=== PATIENT | female | born 1970 | race Caucasian/White ===

== ENCOUNTER 2021-01-16 17:58 | Emergency (ER) | payer BC, SELFPAY ==
--- NOTE | ~2021-01-16 | XR_ITS ---
EXAMINATION: XR lumbar spine 2-3V DATE: 01/16/2021 18:53 INDICATION: Low back pain. TECHNIQUE: 3 views of lumbar spine were obtained. COMPARISON: None. FINDINGS: Bone alignment is normal. Vertebral body heights and intervertebral disc heights are normal . There are endplate osteophytes at most levels. There is multilevel mild facet joint osteoarthritis. IMPRESSION: 1. Mild lumbar spondylosis. Reviewed, dictated and finalized at location A. WEAR SALES COORDINATOR IMPRESSION: 1. Mild lumbar spondylosis.
--- NOTE | ~2021-01-16 | XR_ITS ---
EXAMINATION: XR chest 2V DATE: 01/16/2021 18:51 INDICATION: Shortness of breath. Back pain. TECHNIQUE: Frontal and lateral views of the chest were obtained. COMPARISON: Chest 2 views 10/27/2018 FINDINGS: The chest demonstrates clear lungs without pneumonia, pleural effusion, or pneumothorax. Th e heart size is normal. There is a surgical clip in right breast. IMPRESSION: 1. No acute cardiopulmonary disease. Reviewed, dictated and finalized at location A. TELEPHONIC
[2021-01-16 18:15] VITALS: BP 160/90; PULSE 68; RESP 20; TEMP 36.7; O2SAT 100
--- NOTE | 2021-01-16 18:17 | ED.BACK ---
HPI - Back Pain/Injury General Chief Complaint: Back Pain/Injury Stated Complaint: Chills/Aches/Low Back Pain Source: patient Mode of arrival: ambulatory Limitations: no limitations History of Present Illness HPI Narrative: Neetu Islas is a 50 yo female with aPMH of HTN, renal stones, depression, who comes to [facility] with c/o 10/10 back pain that started 5 hours ago. Denies trauma. States pain is all over, hurts with deep inspiration, mid to lower back. .Denies lifting, any known injury Related Data Home Medications Medication Instructions Recorded Confirmed hydrochlorothiazide 12.5 mg PO BID 01/16/21 01/16/21 Allergies Allergy/AdvReac Type Severity Reaction Status Date / Time No Known Allergies Allergy Verified 01/16/21 18:38 Review of Systems Review of Systems: Narrative: CONSTITUTIONAL: Denies fever, chills, sweats. EYES: Denies visual changes, redness, discharge. ENT: Denies rhinorrhea, congestion, sore throat, otalgia. CARDIOVASCULAR: Denies chest pain, palpitations, edema. RESPIRATORY: Denies dyspnea, wheezing, cough GASTROINTESTINAL: Denies abdominal pain, nausea, vomiting, diarrhea. GENITOURINARY: Denies dysuria, hematuria, abnormal discharge SKIN: Denies rash or itching. NEUROLOGIC: Denies numbness, or focal weakness. PSYCHIATRIC: Denies anxiety or depression. Pain is described as being 10 out of 10 and diffuse across lower back PMFSH Past Medical History Medical History Depression HTN (hypertension) Renal calculi Family History Family History (Updated 01/16/21 @ 18:41 by Angélica Bass CNP) Other Hypertension Social History Social History (Updated 01/16/21 @ 18:41 by Angélica Bass CNP) Smoking status: Former smoker Comments At time of signature, I agree with nursing past medical, surgical, social and family history. There is no relevant family history pertinent to the presenting complaint. Exam Narrative: Exam Narrative: GENERAL: This is a well-nourished, well-developed patient, in moderate distress. HEAD: normocephalic, atraumatic. EYES: . Sclera clear/white. Vision is grossly intact. EARS: External ears normal. Hearing grossly intact. NOSE: External nose normal without nasal discharge, nares without redness, no rhinorrhea. THROAT: Not performed NECK: Neck supple, non-tender CARDIOVASCULAR: Regular rate and rhythm without murmurs, gallops, or rubs. RESPIRATORY: Clear to auscultation. Breath sounds equal bilaterally. No wheezes, rales, or rhonchi. GASTROINTESTINAL: Abdomen soft, non-tender, SKIN: warm, intact with no suspicious lesions or rash, good texture and turgor. NEURO: awake, alert, and oriented to person, place and time. There were no obvious focal neurologic abnormalities. Steady gait EXTREMITIES: Normal range of motion. Can bend forward, lift arms, equal strength- pain when pressure place on arms; pain with bending to right. BACK: tender on R side without deformity Course Course Emergency Course: Patient comes to [facility] with 5 hours of 10/10 back pain that hurts all over particularly on inspiration. UA is negative-no nitrites no leukocyte esterase no blood X-ray lumbar-mild multilevel joint osteoarthritis mild lumbar spondylosis vertebral heights intervertebral disc heights normal X-ray chest-no acute cardiopulmonary disease there is no pneumonia pleural effusion or pneumothorax heart is normal size Toradol given for pain Based on the x-rays and negative UA, patient started on prednisone and muscle relaxant but cautioned the back pain could be indicative of other conditions and that if it worsens she should go to the ER Vital Signs Vital signs: Vital Signs Temperature 98.1 F 01/16/21 18:15 Pulse Rate 68 01/16/21 18:15 Respiratory Rate 20 01/16/21 18:15 Blood Pressure 160/90 H 01/16/21 18:15 Pulse Oximetry 100 01/16/21 18:15 Temperature 98.1 F 01/16/21 18:15 Pulse Rate 68
[2021-01-16] MEDS: KETOROLAC (*BKC) 60 MG/2 ML VIAL IM (18:51)
--- NOTE | 2021-01-16 19:59 | PC.NURSE ---
1910 informed pt [facility] pharmacy is closed and prescriptions could be called into 24 hr pharmacy in [place]. 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
== END 2021-01-16 19:10 | disposition home or self-care (01) ==
PROVIDERS: Emergency Provider Nurse Practitioner; PCP Internal Medicine
DX: R07.89 Other chest pain (principal); Z87.891 Personal history of nicotine dependence; I10 Essential (primary) hypertension; Z87.442 Personal history of urinary calculi
CPT/HCPCS: 71046; 72100; 81003; 96372; 99214; G0463; J1885

== ENCOUNTER 2021-05-08 08:18 | Emergency (ER) | payer BC, SELFPAY ==
[2021-05-08 08:25] VITALS: BP 135/74; PULSE 66; RESP 20; TEMP 37.1; O2SAT 97
--- NOTE | 2021-05-08 09:12 | ED.URI ---
HPI - URI/Sore Throat General Chief Complaint: Upper Respiratory Infection Stated Complaint: Sore Throat, chills, headache Time Seen by Provider: 05/08/21 09:03 Source: patient and RN notes reviewed Mode of arrival: ambulatory Limitations: no limitations History of Present Illness HPI Narrative: 50-year-old female presents with concern for 3-day history of sore throat, fever, chills, headache. She reports she has been taking [id number] remedies such as Tylenol, DayQuil, NyQuil with occasional mild relief. She denies nasal congestion, rhinorrhea, nausea, vomiting, diarrhea, loss of sense of taste or smell, cough, shortness of breath. Reports she was vaccinated for Covid in January elicited complaint: fever and sore throat Related Data Allergies Allergy/AdvReac Type Severity Reaction Status Date / Time No Known Allergies Allergy Verified 05/08/21 08:47 Review of Systems Review of Systems: Narrative: CONSTITUTIONAL: Denies malaise,sweats. Reports chills and fever. EYES: Denies visual changes, redness, or discharge. ENT: Denies rhinorrhea, congestion, sinus pain, otalgia. Reports sore throat. CARDIOVASCULAR: Denies chest pain, palpitations, or edema. RESPIRATORY: Reports cough. Denies dyspnea. GASTROINTESTINAL: Denies abdominal pain, nausea, vomiting, diarrhea SKIN: Denies rash or itching. MUSCULOSKELETAL: Denies myalgia. NEUROLOGIC: Reports headache. All systems reviewed & are unremarkable except as noted in HPI and below PMFSH Past Medical History Medical History Depression HTN (hypertension) Renal calculi Family History Family History (Updated 01/16/21 @ 18:41 by Angélica Bass CNP) Other Hypertension Social History Social History (Updated 01/16/21 @ 18:41 by Angélica Bass CNP) Smoking status: Former smoker Comments At time of signature, agree with nursing past medical, surgical, social and family history. There is no relevant family history pertinent to the presenting complaint Exam Narrative: Exam Narrative: GENERAL: Nontoxic appearing, well-nourished, and in no acute distress. HEAD: Normocephalic EYES: PERRLA, conjunctivae clear ENT: Nares clear, turbinates pink, no discharge. Mucous membranes moist. TM pearly caldera with sharp light reflex bilaterally; no tragal tenderness. Oropharynx erythematous without lesions. Tonsils enlarged and without exudate, no drooling, no hoarseness, no trismus, uvula midline. NECK: Supple. No lymphadenopathy CHEST: Clear to auscultation, breath sounds equal. No wheezing, rhonchi, rales, or stridor. No respiratory distress, speaks in full sentences. HEART: Regular rate and rhythm. No murmur heard. SKIN: Warm, dry, no rash. NEURO: Alert and oriented x3. PSYCH: Normal mood and affect Course Course Emergency Course: Patient is aware of diagnosis, understands and agrees to treatment plan. Anticipatory guidance given. Patient agrees to follow-up as directed and is aware of reasons to seek care at the emergency department. Portions of this record may have been created with voice recognition software Vital Signs Vital signs: Vital Signs Temperature 98.8 F 05/08/21 08:25 Pulse Rate 66 05/08/21 08:25 Respiratory Rate 20 05/08/21 08:25 Blood Pressure 135/74 05/08/21 08:25 Pulse Oximetry 97 05/08/21 08:25 Temperature 98.8 F 05/08/21 08:25 Pulse Rate 66 05/08/21 08:25 Respiratory Rate 20 05/08/21 08:25 Blood Pressure 135/74 05/08/21 08:25 Pulse Oximetry 97 05/08/21 08:25 Reviewed. MDM - URI/Sore Throat MDM Narrative Medical decision making narrative: Differential diagnosis considered: Manuel virus, strep pharyngitis, allergic rhinitis, upper respiratory tract infection, sinusitis, rhinosinusitis, nasopharyngitis. viral pharyngitis, otitis media, otitis externa, pneumonia, bronchitis, viral cough syndrome, viral syndrome, and influenza. Exam findings show no acute concerns o
== END 2021-05-08 09:37 | disposition home or self-care (01) ==
PROVIDERS: Emergency Provider Nurse Practitioner; PCP Internal Medicine
DX: J03.90 Acute tonsillitis, unspecified (principal); Z20.822 Contact with and (suspected) exposure to COVID-19; I10 Essential (primary) hypertension
CPT/HCPCS: 87081; 87426; 87880; 99213; C9803; G0463

== ENCOUNTER 2021-12-24 11:23 | Emergency (ER) | payer BC, SELFPAY ==
--- NOTE | ~2021-12-24 | XR_ITS ---
XR wrist RT min 3V 12/24/2021 11:41 INDICATION: Right wrist pain after fall PROCEDURE: 4 views right wrist COMPARISON: No prior studies for comparison. FINDINGS: Fracture, dislocation or subluxation is not identified. The soft tissues appear within norm al limits. No foreign bodies are identified. IMPRESSION: 1: NO ACUTE BONE OR JOINT ABNORMALITY IDENTIFIED. Reviewed, dictated and finalized at location A. EXTRUSION OPERATOR
[2021-12-24 11:37] VITALS: BP 175/96; PULSE 73; RESP 16; TEMP 37.2; O2SAT 99
--- NOTE | 2021-12-24 12:29 | ED.GENADULT ---
HPI - General Adult General Chief complaint: Extremity Injury, Upper Stated complaint: right wrist injury Source: patient Mode of arrival: ambulatory Limitations: no limitations History of Present Illness HPI narrative: Patient presents for evaluation of right wrist pain following a fall just prior to arrival. She indicates she slipped on ice at home and landed with her right arm outstretched. She did not hit her head. No loss of consciousness. She injured her right wrist and hit her right knee against the ground. She denies any significant pain in right knee. She states her right wrist pain is 5/10 in severity. No radicular component. No paresthesias. She is right hand dominant. Pain is worse with movement. She took tylenol for her pain with some improvement thereafter. She had carpal tunnel surgery on right wrist on 11/15/21 and was advised she should seek medical attention in the event that she injured that area in the future. No additional complaints or concerns. Related Data Home Medications Medication Instructions Recorded Confirmed metoprolol tartrate 50 mg PO BID 12/24/21 12/24/21 rosuvastatin 40 mg PO DAILY 12/24/21 12/24/21 Allergies Allergy/AdvReac Type Severity Reaction Status Date / Time No Known Allergies Allergy Verified 05/08/21 08:47 Review of Systems Review of Systems: CONSTITUTIONAL: Denies fever, chills, or sweats. EYES: Denies visual changes, redness, or discharge. ENT: Denies rhinorrhea, congestion, sore throat, or otalgia. CARDIOVASCULAR: Denies chest pain, palpitations, or edema. RESPIRATORY: Denies cough or dyspnea. GASTROINTESTINAL: Denies abdominal pain, nausea, vomiting, or diarrhea. GENITOURINARY: Denies dysuria or hematuria. SKIN: Denies rash or itching. MUSCULOSKELETAL: Reports right wrist pain and right knee pain. Denies back pain NEUROLOGIC: Denies headache, numbness, dizziness, or weakness. PSYCHIATRIC: Denies anxiety or depression. [facility] Past Medical History Medical History (Updated 12/24/21 @ 12:39 by Taras Flowers, SERVANDO, TERERNCE) Carpal tunnel syndrome Depression HTN (hypertension) Renal calculi Surgical History Surgical History H/O tubal ligation History of delivery History of hysterectomy Family History Family History Mother Family history non-contributory Other Hypertension Social History Social History Smoking status: Former smoker Substance use: never Living arrangements: with family Gender identity (if verbalized by the patient): Female Sexual Orientation (if Verbalized by the Patient): Straight or Heterosexual Spiritual care concerns: No Exam Narrative: GENERAL: Well-appearing, well-nourished, and in no acute distress. HEAD: Normocephalic, atraumatic. EYES: PERRLA and EOMI. ENT: Nares clear, no rhinorrhea or epistaxis. Mucous membranes moist. Oropharynx without tonsillar hypertrophy exudate or other lesions. Bilateral TMs pearly caldera nonbulging NECK: Supple. No adenopathy or masses. No carotid bruits or JVD CHEST: Clear to auscultation. No respiratory distress. No wheezes rales or rhonchi HEART: Regular rate and rhythm. No murmur heard. Normal peripheral pulses. ABDOMEN: Soft, nontender, nondistended, normal active bowel sounds. EXTREMITIES: Normal range of motion. 4/5 hand administrative library assistant strength right and 5/5 hand administrative library assistant strength on left. There is tenderness noted to right wrist without significant edema, crepitus or deformity. SKIN: Excoriated skin tissue surrounding incision from carpal tunnel repair right wrist NEURO: No focal deficits. Alert and oriented x3. PSYCH: Normal mood and affect. Course Course Emergency Course: This is a 51-year-old female who presented after falling on ice just prior to arrival with chief complaint of right wrist pain st
== END 2021-12-24 12:45 | disposition home or self-care (01) ==
PROVIDERS: Emergency Provider Nurse Practitioner
DX: S63.501A Unspecified sprain of right wrist, initial encounter (principal); W00.0XXA Fall on same level due to ice and snow, initial encounter; I10 Essential (primary) hypertension; Z87.891 Personal history of nicotine dependence
CPT/HCPCS: 73110; 99213; G0463

== ENCOUNTER 2025-01-11 08:05 | Emergency (ER) | payer BC, SELFPAY ==
--- OUTSIDE RECORDS SUMMARY | 2025-01-11 08:08 | XMS_ITS | Clinical Summary ---
Author Organization [facility] Address [address] [place] [address] Phone Care Team Providers Care Forest Firefighter Name Role Phone Emi Myers Primary Care Pro vider Allergies Active Allergy Reactions Criticality Noted Date Comments Lisinopril Hives 04/13/2024 Medications amLODIPine (NORVASC) 10 MG Tablet Take 1 Tablet by mouth daily. 30 Tablet 3 04/13/20 24 Active methylPREDNISo lone (MEDROL DOSPACK) 4 MG Tablet Therapy Pack Follow instructions on pack, take with food; Give one pack 1 Tablet 04/14/20 Active Additional Information Patient not taking.Reported on 05/12/2024 hydrALAZINE 10 MG Tablet Take 1 Tablet by mouth 3 times daily as needed for Other (uncontrolled hypertension). 60 Tablet 04/15/20 24 Active metoprolol tartrate (LOPRESSOR) 25 MG Tablet Take 1 tablet by mouth twice daily 60 Tablet 12/19/19 25 Active metoprolol tartrate (LOPRESSOR) 25 MG Tablet Take 1 tablet by mouth twice daily 60 Tablet 11/20/19 25 025 Discontinued Active Problems Problem Noted Date Diagnosed Date Primary hypertension 04/09/2024 Encounters Date Type Department Care Team Description 12/19/2024 Refill [facility] - Internal Medicine - [place] [address] [place] [id number] Emi Myers, PAC Medication Refill 11/20/2024 Refill [facility] [address] [place] [address] Emi Myers, PAC Medication Refill 10/21/2024 Refill [facility] Internal Medicine [facility] [address] [place] [address] Emi Myers, PAC Medication Refill from Last 3 Months Family History Medical History Relation Name Comments Alzheimer's Disease Father Alzheimer's Disease Mother Breast Cancer Mother Cancer Mother Congestive Heart Failure Mother Dementia Mother Relation Name Status Comments Father Mother Alive Social History Tobacco Use Types Packs/Day Years Used Date Smoking Tobacco: Never Smokeless Tobacco: Never Tobacco Cessation:Counseling Given: No Alcohol Use Standard Drinks/Week Comments Not Currently 0 (1 standard drink = 0.6 oz pur e alcohol) [facility] Utilities Answer Date Recorded In the past 12 months has [employer], gas, oil, or water [employer] threatened to shut off services in your home? No 04/09/2024 Social Connection and Isolation Panel [NHANES] A nswer Date Recorded In a typical week, how many times do you talk on the phone with family, friends, or neighbors? Three times a week 04/09/2024 How often do you get togethe r with friends or relatives? Once a week 04/09/2024 How often do you attend chur ch or baptism services? Never 04/09/2024 Do you belong to any clubs o r organizations such as oriental orthodox groups, unions, fraternal or athletic groups, or school groups? No 04/09/2024 How often do you attend meet ings of the clubs or organizations you belong to? Never 04/09/2024 Are you , , di vorced, , never , or living with a partner? 04/09/2024 AUDIT-C Answer Date Recorded Q1: How often do you have a drink containing alc ohol? Monthly or less 04/09/2024 Average Number of Drinks Not on file 024 Frequency of Binge Drinking Not on file 03/20 Overall Financial Resource Strain (CARDIA) Answe r Date Recorded How hard is it for you to pa y for the very basics like food, housing, medical care, and heating? Not very hard 04/09/2024 [facility] [place] [facility] - Occupational Stress Questionnaire Answer Date Recorded Do you feel stress - tense, restless, nervous, or anxious, or unable to sleep at night because your mind is troubled all the time - these days? Only a little 04/09/2024 Exercise Vital Sign Answer Date Recorde d On average, how many days pe r week do you engage in moderate to strenuous exercise (like a brisk walk)? 0 days 04/09/2024 On average, how many minutes do you engage in exercise at this level? 0 min 04/09/2024 Hunger Vital Sign Answer Date Recorded Within the past 12 months, y ou worried that your food would run out before you got the money to buy more. Never true 04/09/20 24 Within the past 12 months, t he food you bought just didn't last and you didn't have money to get more. Never true 04/09/2024 PRAPARE - Transportation Answer Date Re corded In the past 12 months, has l ack of transportation kept you from medical appointments or from getting medications? No 03/20 In the past 12 months, has l ack of transportation kept you from meetings, work, or from getting things needed for daily living? No 04/09/2024 Housing Stability Vital Sign Answer Art e Recorded In the last 12 months, was t here a time when you were not able to pay the mortgage or rent on time? Yes 04/09/2024 In the last 12 months, how many places have you lived? 1 04/09/2024 In the last 12 months, was t here a time when you did not have a steady place to sleep or slept in a group home (including now)? 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 Gender Identity Not on file Sexual Orientation Not on file Last Filed Vital Signs Vital Sign Reading Time Taken Comments Blood Pressure 138/88 05/12/2024 4:02 PM CDT Pulse 82 05/12/2024 4:02 PM CDT Temperature 36.7 C (98 F) 05/12/2024 4:02 PM CDT Respiratory Rate 12 05/12/2024 4:02 PM CDT Oxygen Saturation 98% 05/12/2024 4:02 PM CDT Inhaled Oxygen Concentration - - Weight 103 kg (227 lb) 05/12/2024 4:02 PM CDT Height 165.1 cm (5' 5 ) 04/15/2024 10:39 AM CDT Body Mass Index 37.77 04/15/2024 10:39 AM CDT Plan of Treatment Health Maintenance Due Date Last Done Comments Hepatitis B Immunization (1 of 3 - 19+ 3-dose series) 1990 Pap Smear 1992 Cervical Cancer Screening (CCS) 2001 HPV/Cotest 2001 Mammogram 01/14/2017 01/14/2016, 12/20, 10/21/2012 Cologuard 2021 Immunochemical Fecal Occult Blood 2021 Pneumococcal Immunization (50+ years) (1 of 1 - PCV) 2021 Zoster Immunization (1 of 2) 2021 Colonoscopy 04/26/2023 04/26/2013 Colorectal Cancer Screening 04/26/2023 Influenza Immunization (#1) 07/20/202412/2022, 09/20/2022, 08/31/2021, Additional history exists SARS-COV-2 Immunization ( season) 2024 01/07/2021, 01/03/2021, 12/09/2020, Additional history exists Respiratory Syncytial Virus (RSV) Immunization (Adult) (1 - 1-dose 75+ series) 2046 04/26/2013 Discussion re Starting/Frequency of Mammograms Discontinued 01/03/2016, 11/13/2012, 10/21/2012 DTaP/Tdap/Td Immunization Discontinued 09/20/2022 TdaP Immunization Completed 09/20/2022 Hepatitis C Virus (HCV) Screening Completed 11/08/2022 Meningococcal Immunization (ACWY) Aged Out No longer eligible based on patient's age to complete this topic Rotavirus Immunization Aged Out No lo nger eligible based on patient's age to complete this topic Insurance [facility] Care Teams Forest Firefighter Relationship Specialty Start Date End Date Emi Myers, PALLAVI [address] [place] [address] PCP - General Physician Cement Grinding Mill Operator 04/09/24
--- OUTSIDE RECORDS SUMMARY | 2025-01-11 08:08 | XMS_ITS | Encounter Summary ---
Author Organization [facility] Address [address] [place] [id number] Care Team Providers Care Provider Education Specialist Name Role Phone Unavailable Primary Care Provider Unavailabl e Encounter Details Date Type Department Care Team (Latest Contact Info) Description 05/11/2023 Biz In A Box JVhart Message Enc [facility] Medical Group Multispecialty Care [place] [address] [place] [address] [address] [place] [address] [place] [address] [place] [address] [address] [place] [address] Gastroenterology for colonoscopy Social History Tobacco Use Types Packs/Day Years Used Date Smoking Tobacco: Never Smokeless Tobacco: Never Comments:Counseled by Dr Allison adam Alcohol Use Standard Drinks/Week Comments Never 0 (1 standard drink = 0.6 oz pur e alcohol) PHQ-2 Answer Date Recorded Patient Health Questionnaire-2 Score 0 11/07/2022 Comments No Sex and Gender Information Value Date Recorded Sex Assigned at Not on file 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
--- OUTSIDE RECORDS SUMMARY | 2025-01-11 08:08 | XMS_ITS | Clinical Summary ---
Author Organization [facility] Address [facility] [place] [address] Care Team Providers Care Pediatric Neuropsychologist Name Role Phone Unavailable Primary Care Provider Unavailabl e Allergies No known active allergies Medications ondansetron (ZOFRAN-ODT) 4 MG disintegrating tabletIndications:N ausea Take 1 tablet (4 mg total) by mouth every 8 (eight) hours as needed for Nausea. 20 tablet 3 Active atorvastatin (LIPITOR) 40 MG tabletIndications:M ixed hyperlipidemia Take 1 tablet (40 mg total) by mouth nightly at bedtime. 90 tablet 1 3 Active liraglutide, Weight Management, (SAXENDA) 18 MG/3ML injectionIndication s:Morbidly obese (CMS/HCC HHS/HCC) Start With: 0.6 mg (0.1 mL) SC once daily x7 days, then 1.2 mg (0.2 mL) SC once daily x7 days, then 1.8 mg (0.3 mL) SC once daily x 7 days, then 2.4 mg (0.4 mL) SC once daily x 7 days, then 3 mg (0.5 mL) SC once daily. 3 pen 6 3 Active dicyclomine (BENTYL) 10 MG capsuleIndications: Lower abdominal pain Take 1 capsule (10 mg total) by mouth 4 (four) times daily before meals and nightly. 30 capsule 3 Active valsartan-hydroCHLO ROthiazide (DIOVAN-HCT) 320-25 MG tabletIndications:P rimary hypertension Take 1 tablet by mouth once daily 90 tablet 3 Active metoprolol tartrate (LOPRESSOR) 50 MG tabletIndications:P rimary hypertension Take 1 tablet by mouth twice daily 180 tablet 3 Active Active Problems Problem Noted Date Diagnosed Date Mixed hyperlipidemia 11/08/2022 Hypertension Cataract Immunizations Name Administration Dates Next Due COVID-19 Vaccine (Generic) 01/03/2021,12/03/2020 Influenza (Generic) 09/07/2020 Influenza Adult (Generic) 09/20/2022,08/31/2021, 07/20/2020 MMR (MMRII) 09/28/2022 Tdap (Generic) 09/20/2022 Family History Medical History Relation Comments Diabetes Maternal Grandmother Cancer Mother Breast Relation Status Comments Maternal Grandmother Mother Social History Tobacco Use Types Packs/Day Years Used Date Smoking Tobacco: Never Smokeless Tobacco: Never Tobacco Cessation:Counseling Given: Yes Comments:Counseled by Dr Sprague Alcohol Use Standard Drinks/Week Comments Never 0 (1 standard drink = 0.6 oz pur e alcohol) PHQ-2 Answer Date Recorded Patient Health Questionnaire-2 Score 0 11/07/2022 Comments No Sex and Gender Information Value Date Recorded Sex Assigned at Not on file 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 Gender Identity Not on file Sexual Orientation Not on file Last Filed Vital Signs Vital Sign Reading Time Taken Comments Blood Pressure 141/77 04/09/2023 3:51 PM CDT Pulse 76 04/09/2023 3:01 PM CDT Temperature 37.1 C (98.7 F) 04/09/2023 3:01 PM CDT Respiratory Rate 18 04/09/2023 3:01 PM CDT Oxygen Saturation 98% 04/09/2023 3:01 PM CDT Inhaled Oxygen Concentration - - Weight 105 kg (231 lb 6.4 oz) 04/09/2023 3:01 PM CDT Height 165.1 cm (5' 5 ) 04/09/2023 3:01 PM CDT Body Mass Index 38.51 04/09/2023 3:01 PM CDT Plan of Treatment Health Maintenance Due Date Last Done Comments PHQ-2 (Physician [facility]) 1983 Hepatitis B Vaccines (1 of 3 - 19+ 3-dose series) 1990 Mammogram Screening 01/14/2018 01/14/2016 Zoster Vaccines (1 of 2) 2021 Colorectal Cancer Screening Colonoscopy (10 Years) 04/26/2023 04/26/2013 Annual Physical 11/07/2023 11/07/2022 COVID-19 Vaccine (5 - season) 2024 01/07/2021, 01/03/2021, 12/09/2020, Additional history exists Influenza Adult (#1) 2024 09/20/2022, 08/31/2021, 09/07/2020, Additional history exists PHQ-2 (Physician [facility]) 11/19/2024 DTaP, Tdap and Td Vaccines (2 - Td or Tdap) 09/20/2032 09/20/2022 Hepatitis C Completed 11/08/2022 Meningococcal B Vaccine Aged Out No l onger eligible based on patient's age to complete this topic Meningococcal Vaccine Aged Out No maxine abiodun eligible based on patient's age to complete this topic Pneumococcal Vaccine: Pediatrics (0 to 5 Years) and At-Risk Patients (6 to 64 Years) Aged Out No longer eligible based on patient's age to complete this topic RSV Immunizations Under 20 Months Aged Out No longer eligible based on patient's age to complete this topic Procedures Procedure Name Priority Date/Time Associated Diagnosis Comments HEPATITIS C ANTIBODY Routine 11/08/2022 6:45 AM MACHINE OVERHAULER Annual physical exam Encounter for medical examination to establish care General medical exam Encounter for hepatitis C screening test for low risk patient MAMMOGRAM GENERIC (SCAN ORDER) 01/14/2016 COLONOSCOPY GENERIC (SCAN ORDER) 04/26/2013 from Last 3 Months or Most Recently Relevant to Health Maintenance Results * HEPATITIS C ANTIBODY (11/08/2022 6:45 AM MACHINE OVERHAULER) HEPATITIS C AB NON-REACTI VE NON-REACT RITA 11/08/2022 6:32 PM MACHINE OVERHAULER [facility] Comment: ANTIBODIES TO HCV NOT DETECTED. DOES NOT EXCLUDE THE POSSIBILITY OF EXPOSURE TO HCV. 11/08/2022 6:45 AM MACHINE OVERHAULER Yelitza Sprague MD LABORATORY Final Result [facility] [address] [place] [address], [id number] * MAMMOGRAM GENERIC (01/14/2016) Anatomical Region Laterality Modality Other 01/14/2016 [facility] Scanned SCANNING Final Resu lt * COLONOSCOPY GENERIC (04/26/2013) 04/26/2013 [facility] Scanned SCANNING Final Resu lt from Last 3 Months or Most Recently Relevant to Health Maintenance Insurance
[2025-01-11 08:12] VITALS: BP 169/81; PULSE 66; RESP 20; TEMP 36.5; O2SAT 98
[2025-01-11 08:30] LABS: EDCOVIDSCREEN Negative (Negative); EDINFLUASCREEN Positive (Negative); EDINFLUBSCREEN Negative (Negative)
--- NOTE | 2025-01-11 08:31 | ED_ITS ---
HPI - General Adult General Chief complaint: Upper Respiratory Infection Stated complaint: temp,fever, cough,headache Source: patient Mode of arrival: ambulatory Limitations: no limitations History of Present Illness HPI narrative: Patient presents for evaluation of sick symptoms. Symptom onset 4 days ago. She reports fever, generalized body aches, headache, cough, wheezing, and loose stool. She denies any chills, nausea, vomiting, or shortness of breath. She and several family members recently went to visit her mother in the nursing facility where she resides. Pt's and sister now both have influenza. Pt has taken dayquil, nyquil, mucinex, tylenol and ibuprofen for her symptoms. She does not smoke. Related Data Home Medications ?Medication ?Instructions ?Recorded ?Confirmed ?Last Taken ?Type metoprolol tartrate 50 mg tablet 50 mg PO BID 12/24/21 12/24/21 Unknown History rosuvastatin 40 mg tablet 40 mg PO DAILY 12/24/21 12/24/21 Unknown History Allergies Allergy/AdvReac Type Severity Reaction Status Date / Time No Known Allergies Allergy Verified 05/08/21 08:47 Review of Systems Review of Systems: CONSTITUTIONAL: Reports fever. Denies chills. EYES: Denies visual changes, redness, or discharge. ENT: Reports sore throat and sinus congestion. Denies otalgia. CARDIOVASCULAR: Denies chest pain, palpitations, or edema. RESPIRATORY: Reports cough and wheezing. Denies shortness of breath. GASTROINTESTINAL: Reports loose stool. Denies nausea and vomiting. GENITOURINARY: Denies dysuria or hematuria. SKIN: Denies rash or itching. MUSCULOSKELETAL: Reports generalized body aches NEUROLOGIC: Reports headache. Denies numbness, dizziness, or weakness. PSYCHIATRIC: Denies anxiety or depression. [facility] Past Medical History Medical History Carpal tunnel syndrome Depression Renal calculi HTN (hypertension) Surgical History Surgical History History of delivery History of hysterectomy H/O tubal ligation Family History Family History Mother Family history non-contributory Other Hypertension Social History Social History Smoking status: Former smoker Substance use: never Living arrangements: with family Gender identity (if verbalized by the patient): Female Sexual Orientation (if Verbalized by the Patient): Straight or Heterosexual Spiritual care concerns: No Exam Narrative: GENERAL: Appears acutely ill but nontoxic. HEAD: Normocephalic, atraumatic. EYES: PERRLA and EOMI. ENT: Nares clear, no rhinorrhea or epistaxis. Mucous membranes moist. Oropharynx without tonsillar hypertrophy exudate or other lesions. Bilateral TMs pearly caldera nonbulging NECK: Supple. No adenopathy or masses. No carotid bruits or JVD CHEST: Occasional cough on exam. Clear to auscultation. No respiratory distres s. No wheezes rales or rhonchi HEART: Regular rate and rhythm. No murmur heard. Normal peripheral pulses. ABDOMEN: Soft, nontender, nondistended, normal active bowel sounds. EXTREMITIES: Normal range of motion. No edema. SKIN: Warm, dry, no rash. NEURO: No focal deficits. Alert and oriented x3. PSYCH: Normal mood and affect. Course Course Emergency Course: This is a 54-year-old female who presented for evaluation of sick symptoms after known exposures to influenza. Her influenza A is positive. Will treat with tamiflu and prednisone. She will think about whether she will fill her tamiflu as her time of symptom onset is outside normal window, although she may still get some relief in her symptoms with medication. Will dc with prednisone for wheezing. Increase hydration. OTC agents for symptom management. Follow up with primary provider. Go to the ER for worsening symptoms. Pt in agreement with plan of care. Level of Care: Express Care Visit Vital Signs Vital signs: Vital Signs Temperature 36.5 C 01/11/25 08:12 Pulse Rate 66 01/11/25 08:12 Respiratory Rate 20 01/11/25 08:12 Blood Pressure 169/81 H 01/11/25 08:12 Pulse Oximetry 98 01/11/25 08:12 Oxygen Delivery Room Air 01/11/25 08:12 Temperature 36.5 C 01/11/25 08:12 Pulse Rate 66 01/11/25 08:12 Respiratory Rate 20 01/11/25 08:12 Blood Pressure 169/81 H 01/11/25 08:12 Pulse Oximetry 98 01/11/25 08:12 Oxygen Delivery Room Air 01/11/25 08:12 Medical Decision Making Vital Signs Vital Signs: Vital Signs Temperature 36.5 C 01/11/25 08:12 Pulse Rate 66 01/11/25 08:12 Respiratory Rate 20 01/11/25 08:12 Blood Pressure 169/81 H 01/11/25 08:12 Pulse Oximetry 98 01/11/25 08:12 Oxygen Delivery Room Air 01/11/25 08:12 Temperature 36.5 C 01/11/25 08:12 Pulse Rate 66 01/11/25 08:12 Respiratory Rate 20 01/11/25 08:12 Blood Pressure 169/81 H 01/11/25 08:12 Pulse Oximetry 98 01/11/25 08:12 Oxygen Delivery Room Air 01/11/25 08:12 Lab Data Labs: Lab Results 01/11/25 Range/Units 08:18 POC Influenza A Ag Positive (Negative) POC Influenza B Ag Negative (Negative) POC SARS CoV-2 Ag Negative (Negative) Discharge Plan Discharge Clinical Impression: Influenza A Patient Disposition: Home, Self-Care Condition: Stable Instructions: Antibiotic Form, Influenza (ED) Patient Language: Peruvian Prescriptions: New oseltamivir [Tamiflu] 75 mg capsule 75 mg PO Q12H 5 Days Qty: 10 0RF prednisone 50 mg tablet 50 mg PO DAILY Qty: 5 0RF No Action metoprolol tartrate 50 mg tablet 50 mg PO BID rosuvastatin 40 mg tablet 40 mg PO DAILY Follow-up/Referrals: Lucia,NONA Middleton [Primary Care Provider] - Stand Alone Forms: Work/School Release IP Time of Disposition: 08:26
== END 2025-01-11 08:31 | disposition home or self-care (01) ==
PROVIDERS: Emergency Provider Nurse Practitioner; PCP Physician Assistant
DX: J10.1 Influenza due to other identified influenza virus with other respiratory manifestations (principal); Z20.822 Contact with and (suspected) exposure to COVID-19; Z87.891 Personal history of nicotine dependence; I10 Essential (primary) hypertension
CPT/HCPCS: 87426; 87804; 99213; G0463

== ENCOUNTER 2025-01-24 09:29 | Emergency (ER) | payer BC, SELFPAY ==
--- NOTE | ~2025-01-24 | XR_ITS ---
EXAMINATION: XR chest 2V DATE: 01/24/2025 10:20 INDICATION: Cough. TECHNIQUE: Frontal and lateral views of the chest were obtained. COMPARISON: Chest 2 view 02/15/2022 FINDINGS: There is no pneumonia, pleural effusion, or pneumothorax. The heart size is normal. There i s a surgical clip in right breast. IMPRESSION: 1. No acute cardiopulmonary disease. Reviewed, dictated and finalized at location A. FLATBED TRUCK DRIVER
--- OUTSIDE RECORDS SUMMARY | 2025-01-24 09:30 | XMS_ITS | Encounter Summary ---
Author Organization [facility] Address [address] [place] [id number] Care Team Providers Care Certified Medication Aide Name Role Phone Unavailable Primary Care Provider Unavailabl e Encounter Details Date Type Department Care Team (Latest Contact Info) Description 05/11/2023 HCIhart Message Enc [facility] [place] [address] [place] [address] [address] [place] [address] [place] [address] [place] [address] [address] [place] [address] Gastroenterology for colonoscopy Social History Tobacco Use [...] on file 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
--- OUTSIDE RECORDS SUMMARY | 2025-01-24 09:30 | XMS_ITS | Clinical Summary ---
Author Organization [facility] Address [address] [place] [address] Phone Care Team Providers Care Spanner Operator Name Role Phone Emi Myers Primary Care Pro vider Allergies Active Allergy Reactions Criticality Noted Date Comments Lisinopril Hives 04/13/2024 Medications amLODIPine (NORVASC) 10 MG Tablet Take 1 Tablet by mouth daily. 30 Tablet 3 04/13/20 24 Active methylPREDNISo lone (MEDROL DOSPACK) 4 MG Tablet Therapy Pack Follow instructions on pack, take with food; Give one pack 1 Tablet 04/14/20 24 Active Additional Information Patient not taking.Reported on 05/12/2024 hydrALAZINE 10 MG Tablet Take 1 Tablet by mouth 3 times daily as needed for Other (uncontrolled hypertension). 60 Tablet 04/15/20 24 Active metoprolol tartrate (LOPRESSOR) 25 MG Tablet Take 1 tablet by mouth twice daily 60 Tablet 01/21/20 25 Active metoprolol tartrate (LOPRESSOR) 25 MG Tablet Take 1 tablet by mouth twice daily 60 Tablet 12/19/19 25 025 Discontinued Active Problems Problem Noted Date Diagnosed Date Primary hypertension 04/09/2024 Encounters Date Type Department Care Team Description 01/20/2025 Refill [facility] [place] [address] [place] [id number] Emi Myers, PAC Medication Refill 12/19/2024 Refill [facility] [address] [place] [address] Emi Myers, PAC Medication Refill 11/20/2024 [facility]ill [facility] Internal Medicine [facility] [address] [place] [address] Emi Myers, PAC Medication Refill from Last [...] drink = 0.6 oz pur e alcohol) [facility] Utilities Answer Date Recorded In the past 12 months has [employer], gas, oil, or water [employer] threatened to shut off services in your [...] often do you attend chur ch or sabianism services? Never 04/09/2024 Do you belong to any clubs o r organizations such as baptist groups, unions, fraternal or athletic groups, or [...] care, and heating? Not very hard 04/09/2024 [facility] Stress Questionnaire Answer Date [...] place to sleep or slept in a mcc (including now)? 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
--- OUTSIDE RECORDS SUMMARY | 2025-01-24 09:30 | XMS_ITS | Clinical Summary ---
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 Gender Identity Not on file Sexual Orientation [...] Due Date Last Done Comments PHQ-2 ([facility] [place]) 1983 Hepatitis B Vaccines (1 of 3 - 19+ 3-dose series) 1990 Mammogram Screening 01/14/2018 01/14/2016 Zoster Vaccines (1 of 2) 2021 Colorectal Cancer Screening Colonoscopy (10 Years) 04/26/2023 04/26/2013 Annual Physical 11/07/2023 11/07/2022 COVID-19 Vaccine (5 - season) 2024 01/07/2021, 01/03/2021, 12/09/2020, Additional history exists Influenza Adult (#1) 2024 09/20/2022, 08/31/2021, 09/07/2020, Additional history exists PHQ-2 ([facility] [place]) 11/19/2024 DTaP, Tdap and Td Vaccines (2 [...] HEPATITIS C ANTIBODY Routine 11/08/2022 6:45 AM SLEEPING BAG FILLER Annual physical exam Encounter for medical examination to establish care General medical exam Encounter for hepatitis C screening test for low risk patient MAMMOGRAM GENERIC (SCAN ORDER) 01/14/2016 COLONOSCOPY GENERIC (SCAN ORDER) 04/26/2013 from Last 3 Months or Most Recently Relevant to Health Maintenance Results * HEPATITIS C ANTIBODY (11/08/2022 6:45 AM SLEEPING BAG FILLER) HEPATITIS C AB NON-REACTI VE NON-REACT RITA 11/08/2022 6:32 PM SLEEPING BAG FILLER [facility] Comment: ANTIBODIES TO HCV NOT DETECTED. DOES NOT EXCLUDE THE POSSIBILITY OF EXPOSURE TO HCV. 11/08/2022 6:4 5 AM SLEEPING BAG FILLER Yelitza Sprague MD LABORATORY Final Result [facility] [address] [place] [address], [id number] * MAMMOGRAM GENERIC (01/14/2016) Anatomical Region Laterality Modality Other 01/14/2016 [facility] Scanned SCANNING Final Resu lt * COLONOSCOPY GENERIC (04/26/2013) 04/26/2013 [facility] Scanned SCANNING Final Resu lt from Last 3 Months or Most Recently Relevant to Health Maintenance Insurance
[2025-01-24 09:37] VITALS: BP 154/88; PULSE 66; RESP 16; TEMP 36.6; O2SAT 99
[2025-01-24 10:05] LABS: EDINFLUASCREEN Negative (Negative); EDINFLUBSCREEN Negative (Negative)
[2025-01-24 10:06] LABS: EDCOVIDSCREEN Negative (Negative)
--- NOTE | 2025-01-24 10:09 | ED.GENADULT ---
HPI - General Adult General Chief complaint: Upper Respiratory Infection Stated complaint: Congestion/headache/throat Source: patient Mode of arrival: ambulatory Limitations: no limitations History of Present Illness HPI narrative: Patient presents for evaluation of sick symptoms. I actually saw her here on 01/11/2025 at which time she tested positive for influenza A. She was given Tamiflu and prednisone. She indicates her symptoms improved. Three days ago she had recurrence of her symptoms. She reports sinus congestion, green nasal drainage, and productive cough of dark sputum. On the day of symptom recurrence she had a sore throat but that has resolved. She denies any fever, chills, nausea, vomiting, diarrhea. She is taking Mucinex for her symptoms. She does not smoke. Related Data Home Medications ?Medication ?Instructions ?Recorded ?Confirmed ?Last Taken ?Type metoprolol tartrate 50 mg tablet 50 mg PO BID 12/24/21 12/24/21 Unknown History rosuvastatin 40 mg tablet 40 mg PO DAILY 12/24/21 12/24/21 Unknown History Allergies Allergy/AdvReac Type Severity Reaction Status Date / Time No Known Allergies Allergy Verified 05/08/21 08:47 Review of Systems Review of Systems: CONSTITUTIONAL: Denies fever, chills, or sweats. EYES: Denies visual changes, redness, or discharge. ENT: Reports sinus congestion and green nasal drainage. Denies sore throat or otalgia. CARDIOVASCULAR: Denies chest pain, palpitations, or edema. RESPIRATORY: Reports cough. Denies shortness of breath. GASTROINTESTINAL: Denies abdominal pain, nausea, vomiting, or diarrhea. GENITOURINARY: Denies dysuria or hematuria. SKIN: Denies rash or itching. MUSCULOSKELETAL: Denies back pain, joint pain, or myalgia. NEUROLOGIC: Denies headache, numbness, dizziness, or weakness. PSYCHIATRIC: Denies anxiety or depression. [facility] Past Medical History Medical History Carpal tunnel syndrome Depression Renal calculi HTN (hypertension) Surgical History Surgical History History of delivery History of hysterectomy H/O tubal ligation Family History Family History Mother Family history non-contributory Other Hypertension Social History Social History Smoking status: Former smoker Substance use: never Living arrangements: with family Gender identity (if verbalized by the patient): Female Sexual Orientation (if Verbalized by the Patient): Straight or Heterosexual Spiritual care concerns: No Exam Narrative: GENERAL: Well-appearing, well-nourished, and in no acute distress. HEAD: Normocephalic, atraumatic. EYES: PERRLA and EOMI. ENT: Nares clear, no rhinorrhea or epistaxis. Mucous membranes moist. Oropharynx without tonsillar hypertrophy exudate or other lesions. Bilateral TMs pearly caldera nonbulging NECK: Supple. No adenopathy or masses. No carotid bruits or JVD CHEST: Clear to auscultation. No respiratory distress. No wheezes rales or rhonchi HEART: Regular rate and rhythm. No murmur heard. Normal peripheral pulses. ABDOMEN: Soft, nontender, nondistended, normal active bowel sounds. EXTREMITIES: Normal range of motion. No edema. SKIN: Warm, dry, no rash. NEURO: No focal deficits. Alert and oriented x3. PSYCH: Normal mood and affect. Course Course Emergency Course: This is a 54-year-old female who presented for evaluation of sick symptoms. Her COVID was negative. Chest x-ray was negative. Exam is consistent with bacterial sinusitis based upon mucopurulent nature for discharge. Will DC with Augmentin. Increase hydration. [id number] agents for symptom management. Follow up with primary provider. Go to the ER for worsening symptoms. Patient in agreement with plan of care. Level of Care: Express Care Visit Vital Signs Vital signs: Vital Signs Temperature 36.6 C 01/24/25 09:37 Pulse Rate 66 01/24/25 09:37 Respiratory Rate 16 01/24/25 09:37 Blood Pressure 154/88 H 01/24/25 09:37 Pulse Oximetry 99 01/24/25 09:37 Oxygen Delivery Room Air 01/24/25 09:37 Temperature 36.6 C 01/24/25 09:37 Pulse Rate 66 01/24/25 09:37 Respiratory Rate 16 01/24/25 09:37 Blood Pressure 154/88 H 01/24/25 09:37 Pulse Oximetry 99 01/24/25 09:37 Oxygen Delivery Room Air 01/24/25 09:37 Medical Decision Making Vital Signs Vital Signs: Vital Signs Temperature 36.6 C 01/24/25 09:37 Pulse Rate 66 01/24/25 09:37 Respiratory Rate 16 01/24/25 09:37 Blood Pressure 154/88 H 01/24/25 09:37 Pulse Oximetry 99 01/24/25 09:37 Oxygen Delivery Room Air 01/24/25 09:37 Temperature 36.6 C 01/24/25 09:37 Pulse Rate 66 01/24/25 09:37 Respiratory Rate 16 01/24/25 09:37 Blood Pressure 154/88 H 01/24/25 09:37 Pulse Oximetry 99 01/24/25 09:37 Oxygen Delivery Room Air 01/24/25 09:37 Lab Data Labs: Lab Results 01/24/25 01/24/25 Range/Units 10:03 10:04 POC Influenza A Ag Negative (Negative) POC Influenza B Ag Negative (Negative) POC SARS CoV-2 Ag Negative (Negative) Imaging Data Radiologist's impression: EXAMINATION: XR chest 2V DATE: 01/24/2025 10:20 INDICATION: Cough. TECHNIQUE: Frontal and lateral views of the chest were obtained. COMPARISON: Chest 2 view 02/15/2022 FINDINGS: There is no pneumonia, pleural effusion, or pneumothorax. The heart size is normal. There is a surgical clip in right breast. IMPRESSION: 1. No acute cardiopulmonary disease. Discharge Plan Discharge Clinical Impression: Acute bacterial sinusitis Patient Disposition: Home, Self-Care Condition: Stable Instructions: Antibiotic Form, Sinusitis (ED) Patient Language: Welsh Prescriptions: New amoxicillin-pot clavulanate 875-125 mg tablet 1 tablet PO Q12H Qty: 20 0RF No Action metoprolol tartrate 50 mg tablet 50 mg PO BID rosuvastatin 40 mg tablet 40 mg PO DAILY oseltamivir [Tamiflu] 75 mg capsule 75 mg PO Q12H 5 Days Qty: 10 0RF prednisone 50 mg tablet 50 mg PO DAILY Qty: 5 0RF Follow-up/Referrals: Lucia,NONA Middleton [Primary Care Provider] - Stand Alone Forms: Work/School Release IP Time of Disposition: 10:50
== END 2025-01-24 11:00 | disposition home or self-care (01) ==
PROVIDERS: Emergency Provider Nurse Practitioner; PCP Physician Assistant
DX: J01.90 Acute sinusitis, unspecified (principal); Z20.822 Contact with and (suspected) exposure to COVID-19; I10 Essential (primary) hypertension
CPT/HCPCS: 71046; 87426; 87804; 99213; G0463

== ENCOUNTER 2025-02-25 08:44 | Emergency (ER) | payer BC, SELFPAY ==
[2025-02-25 08:50] VITALS: PULSE 77; RESP 18; TEMP 36.4; O2SAT 97
[2025-02-25 09:04] VITALS: BP 160/90
--- NOTE | 2025-02-25 09:06 | ED_ITS ---
HPI - Female Genitourinary General Chief complaint: Urogenital-Female Stated complaint: urinary iritation Time Seen by Provider: 02/25/25 09:06 Source: patient and RN notes reviewed Mode of arrival: ambulatory Limitations: no limitations History of Present Illness HPI Narrative: 54 y/o female presented for c/o burning at the end of urination and left lower back pain. Onset 2 days. Reports a history of renal stones, and says the pain does not feel similar. Taking Tylenol for pain. Denies hematuria, nausea, vomiting, abdominal pain, flank pain, constipation, diarrhea, fevers or chills. Related Data Home Medications ?Medication ?Instructions ?Recorded ?Confirmed ?Last Taken ?Type metoprolol tartrate 50 mg tablet 50 mg PO BID 12/24/21 02/25/25 Unknown History rosuvastatin 40 mg tablet 40 mg PO DAILY 12/24/21 12/24/21 Unknown History Allergies Allergy/AdvReac Type Severity Reaction Status Date / Time No Known Allergies Allergy Verified 02/25/25 09:03 Review of Systems Review of Systems: CONSTITUTIONAL: Denies body aches, fever, chills, or sweats. CARDIOVASCULAR: Denies chest pain, palpitations, or edema. RESPIRATORY: Denies cough or dyspnea. GASTROINTESTINAL: Denies abdominal pain, nausea, vomiting, or diarrhea. GENITOURINARY: Reports dysuria, denies frequency, urgency, hematuria, flank pain SKIN: Denies rash MUSCULOSKELETAL: Denies back pain or myalgia. [facility] Past Medical History Medical History Carpal tunnel syndrome Depression Renal calculi HTN (hypertension) Surgical History Surgical History History of delivery History of hysterectomy H/O tubal ligation Family History Family History Mother Family history non-contributory Other Hypertension Social History Social History Smoking status: Former smoker Substance use: never Living arrangements: with family Gender identity (if verbalized by the patient): Female Sexual Orientation (if Verbalized by the Patient): Straight or Heterosexual Spiritual care concerns: No Comments At time of signature, I have reviewed and agree with nursing past medical, surgical, social and family history unless otherwise noted. Please see nursing chart for further information. There is no relevant family history pertinent to the presenting complaint Exam Narrative: GENERAL: Well-appearing ENT: Mucous membranes pink and moist. NECK: Normal AROM. Supple. CHEST: No respiratory distress. Clear to auscultation. HEART: Regular rate and rhythm. ABDOMEN: Soft, nontender, nondistended, normal active bowel sounds. No CVA tenderness SKIN: Warm, dry, no rash. NEURO: No focal deficits. Alert and oriented x3. Gait steady. Course Course Emergency Course: Patient is aware of diagnosis, understands and agrees to treatment plan. Anticipatory guidance given. Patient agrees to follow-up as directed and is aware of reasons to seek care at the emergency department. Portions of this record may have been created with voice recognition software Level of Care: Express Care Visit Vital Signs Vital signs: Vital Signs Temperature 97.5 F L 02/25/25 08:50 Pulse Rate 77 02/25/25 08:50 Respiratory Rate 18 02/25/25 08:50 Pulse Oximetry 97 02/25/25 08:50 Oxygen Delivery Room Air 02/25/25 08:50 Temperature 97.5 F L 02/25/25 08:50 Pulse Rate 77 02/25/25 08:50 Respiratory Rate 18 02/25/25 08:50 Blood Pressure 160/90 H 02/25/25 09:04 Pulse Oximetry 97 02/25/25 08:50 Oxygen Delivery Room Air 02/25/25 08:50 Reviewed MDM - Female Genitourinary MDM Narrative Medical decision making narrative: Discussed physical exam findings and urine dip. Pt is aware of her hx renal stones and will monitor for worsening pain. Advised supportive measures and signs/symptoms to go to the ER. Pt is appropriate for outpt treatment and f/u. Differential Diagnosis Differential diagnosis: Likely urinary tract infection, vaginitis, cystitis and other Discharge Plan Discharge Clinical Impression: Urinary tract infection Patient Disposition: Home Condition: Stable Instructions: Antibiotic Form, Urinary Tract Infection in Women (ED) Additional Instructions: Take the antibiotic as prescribed The urine will be sent of for a culture to identify what type of bacteria is causing your infection. If the culture shows that the antibiotic will not get rid of your infection, you will be notified and a new antibiotic will be called in for you. Increase water intake you will need to follow up with your PCP, call to schedule an appointment. Go to the ER for any worsening symptoms or concerns Patient Language: Yemeni Prescriptions: New nitrofurantoin monohyd/m-cryst [Macrobid] 100 mg capsule 100 mg PO Q12H 5 Days Qty: 10 0RF Rx Instructions: must administer with a meal/food No Action metoprolol tartrate 50 mg tablet 50 mg PO BID rosuvastatin 40 mg tablet 40 mg PO DAILY Follow-up/Referrals: Lucia,NONA Middleton [Primary Care Provider] - Time of Disposition: 09:13
[2025-02-25 09:11] LABS: EDUAAPPEAR Cloudy; EDUABILI Negative (Negative); EDUABLOOD 1+ (Negative); EDUACOLOR1 Tea Colored; EDUAGLUCOSE Negative (Negative); EDUAKETONE Negative (Negative); EDUALEUKO 2+ (Negative); EDUANITRATE Positive (Negative); EDUAPROTEIN 2+ (Negative); EDUAUROBILI 0.2
--- OUTSIDE RECORDS SUMMARY | 2025-02-25 09:13 | XMS_ITS | Clinical Summary ---
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 Gender Identity Not on file Sexual Orientation [...] Due Date Last Done Comments Hepatitis B Vaccines (1 of 3 - 19+ 3-dose series) 1990 Mammogram Screening 01/14/2018 01/14/2016 Zoster Vaccines (1 of 2) 2021 Colorectal Cancer Screening Colonoscopy (10 Years) 04/26/2023 04/26/2013 Annual Physical 11/07/2023 11/07/2022 COVID-19 Vaccine ( season) 2024 01/07/2021, 01/03/2021, 12/09/2020, Additional history exists PHQ-2 (Physician [place]) 11/19/2024 DTaP, Tdap and Td Vaccines (2 [...] HEPATITIS C ANTIBODY Routine 11/08/2022 6:45 AM ROCK CRUSHING MACHINE OPERATOR Annual physical exam Encounter for medical examination to establish care General medical exam Encounter for hepatitis C screening test for low risk patient MAMMOGRAM GENERIC (SCAN ORDER) 01/14/2016 COLONOSCOPY GENERIC (SCAN ORDER) 04/26/2013 from Last 3 Months or Most Recently Relevant to Health Maintenance Results * HEPATITIS C ANTIBODY (11/08/2022 6:45 AM ROCK CRUSHING MACHINE OPERATOR) HEPATITIS C AB NON-REACTI VE NON-REACT RITA 11/08/2022 6:32 PM ROCK CRUSHING MACHINE OPERATOR [facility] Comment: ANTIBODIES TO HCV NOT DETECTED. DOES NOT EXCLUDE THE POSSIBILITY OF EXPOSURE TO HCV. 11/08/2022 6:45 AM ROCK CRUSHING MACHINE OPERATOR Yelitza Sprague MD LABORATORY Final Result [facility] [address] [place] [address], [place] [phone] [id number] * MAMMOGRAM GENERIC (01/14/2016) Anatomical Region Laterality Modality Other 01/14/2016 [facility] Scanned SCANNING Final Resu lt * COLONOSCOPY GENERIC (04/26/2013) 04/26/2013 [facility] Scanned SCANNING Final Resu lt from Last 3 Months or Most Recently Relevant to Health Maintenance [place] [address] [place] [address]
--- OUTSIDE RECORDS SUMMARY | 2025-02-25 09:13 | XMS_ITS | Encounter Summary ---
Author Organization [facility] Address [address] [place] [id number] Care Team Providers Care Banjo Repair Person Name Role Phone Unavailable Primary Care Provider Unavailabl e Encounter Details Date Type Department Care Team (Latest Contact Info) Description 05/11/2023 [employer] Message Enc 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
--- OUTSIDE RECORDS SUMMARY | 2025-02-25 09:13 | XMS_ITS | Clinical Summary ---
Author Organization [facility] Address [address] [place] [address] Phone Care Team Providers Care 1St Pressman Name Role Phone Emi Myers Primary Care [...] tablet by mouth twice daily 60 Tablet 02/18/20 25 Active metoprolol tartrate (LOPRESSOR) 25 MG Tablet Take 1 tablet by mouth twice daily 60 Tablet 01/21/20 25 025 Discontinued Active Problems Problem Noted Date Diagnosed Date Primary hypertension 04/09/2024 Encounters Date Type Department Care Team Description 02/17/2025 Refill [facility] - [place] [address] [place] [id number] Emi Myers, PAC Medication Refill 01/20/2025 Refill [facility] - [facility] [address] [place] [address] Emi Myers, PAC Medication Refill 12/19/2024 Refill [facility] [address] [place] [address] Emi Myers, PAC Medication Refill from Last [...] drink = 0.6 oz pur e alcohol) [facility] Utilities Answer Date Recorded In the past 12 months has [employer], gas, oil, or water [employer] threatened to shut off services in your [...] often do you attend chur ch or samaritan services? Never 04/09/2024 Do you belong to any clubs o r organizations such as catholic groups, unions, fraternal or athletic groups, or [...] care, and heating? Not very hard 04/09/2024 [facility] [place] [facility] Occupat psychiatric hospital[facility] Health - Occupational Stress Questionnaire Answer [...] place to sleep or slept in a penitentiary (including now)? 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 Gender Identity Not on file Sexual Orientation [...] 04/15/2024 10:39 AM CDT Plan of Treatment Upcoming Encounters Date Type Department Care Team (Late st Contact Info) Description 02/25/2025 3:30 PM CDT Office Visit [facility] - [facility] - [place] [address] [place] [id number] Emi Myers, [facility] [address] [place] [address] Health Maintenance Due Date Last Done Comments Hepatitis B Immunization (1 of 3 - 19+ 3-dose series) 1990 Mammogram 01/14/2017 01/14/2016, 12/20, 10/21/2012 Cologuard 2021 Immunochemical Fecal Occult Blood 2021 Pneumococcal Immunization (50+ years) (1 of 1 - PCV) 2021 Zoster Immunization (1 of 2) 2021 Colonoscopy 04/26/2023 04/26/2013 Colorectal Cancer Screening 04/26/2023 SARS-COV-2 Immunization ( season) 2024 01/07/2021, 01/03/2021, 12/09/2020, Additional history exists Influenza Immunization (Season Ended) 2025 09/20/2023, 09/20/2022, 08/31/2021, Additional history exists Respiratory Syncytial Virus (RSV) [...] Procedure Name Priority Date/Time Associated Diagnosis Comments XR - CHEST 01/24/2025 12:00 AM BUNCH BREAKER from Last 3 Months Results * XR - CHEST (01/24/2025 12:00 AM BUNCH BREAKER) 01/24/2025 us Provider Scan IMG DIAGNOSTIC ORDERABLES Final Result SCAN from Last 3 Months Insurance [facility] Care Teams 1St Pressman Relationship Specialty Start Date End Date Emi Myers PAC [address] [place] [address] PCP - General Physician Combat Systems Operator 04/09/24
== END 2025-02-25 09:26 | disposition home or self-care (01) ==
PROVIDERS: Emergency Provider Nurse Practitioner Family; PCP Physician Assistant
DX: N39.0 Urinary tract infection, site not specified (principal); B96.20 Unspecified Escherichia coli [E. coli] as the cause of diseases classified elsewhere; I10 Essential (primary) hypertension; Z87.442 Personal history of urinary calculi
CPT/HCPCS: 81003; 87086; 87186; 99213; G0463